=== PATIENT | female | born 1970 | race Caucasian/White ===

== ENCOUNTER 2016-11-21 05:30 | Day surgery (SDC) ==
[2016-11-21] MEDS ORDERED: NS 1,000 ML ONE (06:09)
[2016-11-21] MEDS ORDERED: MYLICON DROPS (DOSE) MISC ONE (06:40)
[2016-11-21] MEDS ORDERED: DIPRIVAN 1% ONE (07:25)
[2016-11-21 08:02] VITALS: BP 122/77
[2016-11-21] MEDS ORDERED: VERSED ONE (08:49)
--- NOTE | 2016-11-21 09:19 | OPERATIVE NOTE ---
PROCEDURE DATE: 11/21/2016 PROCEDURE: Esophagogastroduodenoscopy HISTORY AND REASON FOR PROCEDURE: This patient has a history of gastroesophageal reflux disease. She also has some postprandial abdominal pain. She has quite a large spleen and fatty liver. Dr. Deutsch is planning for a splenectomy. Therefore, he asked me to do an endoscopy prior to splenectomy. Medications were all given by Anesthesiologist. Patient was monitored before, during, and after the procedure by them and her condition remains stable. PHOTOS TAKEN: None. SPECIMENS: From the antrum, to rule out Helicobacter pylori infection. PROCEDURE: The patient was kept in the left lateral decubitus position. Bite block was applied. The Olympus video scope was introduced under direct vision in the throat and advanced to the esophagus. The esophagus was then insufflated. The mucosa in the upper esophagus and mid esophagus appeared normal. At the lower esophagus, there were some erosions present with some mild erythema suggestive of reflux esophagitis. The GE junction was normal. The scope was advanced without any difficulty in the stomach. There was some debris which was aspirated and removed. The scope was immediately taken down to the antrum. The antrum had multiple erosions present, some of them were quite deep but no ulcerations were present. Some enlarged folds were present in the prepyloric area. The pylorus admitted the scope without any difficulty. Duodenal bulb and second part of the duodenum appeared normal. The scope was withdrawn. The stomach was retroflexed. The angularis, left was lesser curvature, and greater curvature were all examined carefully. There were no lesions in those areas. The fundus appeared to be normal. There were 2 biopsies taken from the antrum to rule out Helicobacter pylori infection. Air was taken out from the patient's stomach and scope was removed from the patient. In particular, there was no evidence of any gastric or esophageal varices. RECOMMENDATIONS: Continue omeprazole. The patient is to see me in the office in 2 weeks time.
== END 2016-11-21 07:55 | disposition home or self-care (01) ==
LOC: ENDO 05:30
PROVIDERS: ATTEND Internal Medicine Gastroenterology
DX: K29.50 Unspecified chronic gastritis without bleeding (principal); K21.9 Gastro-esophageal reflux disease without esophagitis; I10 Essential (primary) hypertension; E66.9 Obesity, unspecified; E11.9 Type 2 diabetes mellitus without complications; M19.90 Unspecified osteoarthritis, unspecified site; M79.7 Fibromyalgia
CPT/HCPCS: 82948; 88305; 88312; J2250; J7030

== ENCOUNTER 2016-11-21 07:51 | Inpatient (IN) ==
--- NOTE | 2016-11-20 13:00 | Diag Imaging Result Document ---
PROCEDURE NAME: CHEST-2 VIEWS - 11/20/2016 TWO VIEWS OF THE CHEST: FINDINGS: There is no evidence of acute cardiac or pulmonary disease. There are no previous studies. IMPRESSION: No acute disease.
--- NOTE | 2016-11-20 14:12 | EKG Report ---
Test Performed on : 11/20/2016 11:22:52 AM Test Reason : PAT Blood Pressure : / mmHG Vent. Rate : 099 BPM Atrial Rate : 099 BPM P-R Int : 160 ms QRS Dur : 072 ms QT Int : 376 ms P-R-T Axes : 048 025 026 degrees QTc Int : 482 ms Normal sinus rhythm. Prolonged QT Abnormal ECG No previous ECGs available Confirmed by John Nuñez MD ([id number]) on 11/21/2016 8:56:19 PM
[2016-11-24 08:59] LABS: MANUAL DIFF NEEDED? NO
[2016-11-24 08:59] LABS: URINE MICRO REVIEW NEEDED? NO; URINE SOURCE CLEAN CATCH
[2016-11-24 09:15] LABS: BILIRUBIN URINE NEGATIVE (NEGATIVE); BLOOD URINE NEGATIVE (NEGATIVE); COLOR YELLOW; GLUCOSE URINE NEGATIVE (NEGATIVE); LEUKOCYTES URINE NEGATIVE (NEGATIVE); NITRITE URINE NEGATIVE (NEGATIVE); PROTEIN URINE NEGATIVE (NEGATIVE); SP GRAVITY URINE 1.017; TURBIDITY URINE CLEAR (CLEAR); UR EPITHELIAL CELLS <10 /HPF (<10); URINE BACTERIA NEGATIVE /HPF; URINE RBC <10 /HPF (<10); URINE WBC <10 /HPF (<10); UROBILINOGEN URINE NORMAL (NORMAL)
[2016-11-24 09:36] LABS: AGAP 12; ALBUMIN 3.8 g/dL (3.5-5.0); ALKALINE PHOSPHATASE 134 U/L (32-104); BUN 8 mg/dL (8-22); CALCIUM 9.1 mg/dL (8.8-10.2); CHLORIDE 94 mmol/L (98-107); COSMO 273; GOT 47 U/L (10-30); GPT 51 U/L (10-36); POTASSIUM 3.6 mmol/L (3.5-5.1); SODIUM 136 mmol/L (136-145); TCO2 30 mmol/L (25-35); TOTAL BILIRUBIN 0.44 mg/dL (0.20-1.00)
[2016-11-24 09:40] LABS: BASO% 0.8 % (0.0-0.8); EOS% 1.3 % (0.0-10.0); HEMATOCRIT 37.1 % (37.0-47.0); HEMOGLOBIN 12.2 g/dL (12.0-16.0); LYMPH# 4.64 X1000 (1.2-3.4); LYMPH% 60.2 % (20.5-51.1); MCH 27.8 PG (27-31); MCHC 32.9 g/dL (33-37); MCV 84.5 FL (81-99); MONO# 0.54 X1000 (0.11-0.59); NEUT% 30.7 % (42.2-75.2); PLT 230 X1000 (130-400); RBC 4.39 XMIL (4.2-5.4)
[2016-11-25] MEDS ORDERED: REGLAN ONE (06:15)
[2016-11-25] MEDS ORDERED: LR 1,000 ML ONE (06:15)
[2016-11-25] MEDS ORDERED: KEFZOL 1 GM/D5W 50 ML ONE (06:15)
[2016-11-25] MEDS ORDERED: PEPCID ONE (06:15)
[2016-11-25] MEDS ORDERED: ROBINUL ONE ×2 (06:36→11:40)
[2016-11-25] MEDS ORDERED: SODIUM CHLORIDE 0.9% 10 ML ONE ×2 (07:08→07:09)
[2016-11-25] MEDS ORDERED: MARCAINE 0.25% PF ONE ×2 (07:08)
[2016-11-25] MEDS ORDERED: EXPAREL 1.3% ONE (07:08)
[2016-11-25 07:42] LABS: URINE MICRO REVIEW NEEDED? NO; URINE SOURCE CATH
[2016-11-25 07:46] LABS: BILIRUBIN URINE NEGATIVE (NEGATIVE); BLOOD URINE NEGATIVE (NEGATIVE); COLOR YELLOW; GLUCOSE URINE NEGATIVE (NEGATIVE); LEUKOCYTES URINE NEGATIVE (NEGATIVE); NITRITE URINE NEGATIVE (NEGATIVE); PH URINE 7.5; PROTEIN URINE TRACE mg/dL (NEGATIVE); SP GRAVITY URINE 1.019; TURBIDITY URINE CLEAR (CLEAR); UROBILINOGEN URINE NORMAL (NORMAL)
[2016-11-25 07:48] LABS: UR EPITHELIAL CELLS <10 /HPF (<10); URINE BACTERIA NEGATIVE /HPF; URINE RBC <10 /HPF (<10); URINE WBC <10 /HPF (<10)
[2016-11-25] MEDS ORDERED: DILAUDID ONE ×3 (09:18→12:34)
[2016-11-25] MEDS: DEMEROL ONE ×5 (09:25→09:50)
[2016-11-25] MEDS ORDERED: D5 1/2 NS 1,000 ML ONE (09:55)
[2016-11-25] MEDS: DILAUDID ONE ×2 (10:05→10:20)
[2016-11-25] MEDS ORDERED: DILAUDID PCA VIAL ONE (10:17)
--- NOTE | 2016-11-25 11:09 | OPERATIVE NOTE ---
PROCEDURE DATE: 11/25/2016 PREOPERATIVE DIAGNOSIS: Splenomegaly with left upper quadrant pain. PROCEDURE: Open splenectomy. SURGEON: Arian Deutsch MD and Facundo Ohara MD DESCRIPTION OF PROCEDURE: The patient was brought to the operating room. After satisfactory induction of IV and endotracheal anesthesia, Barrett catheter and athrombic TEDs were placed. She was propped up on the left side. Her abdomen was broadly prepped and draped in the appropriate manner. A generous left subcostal incision was taken sharply down through skin and 3-4 inches of subcutaneous fat prior to reaching the fascia. The fascia was incised. The left rectus muscle was divided. The peritoneum was grasped and entered. The viscera were packed inferiorly. The liver was seen to be largely fatty replaced, but not cirrhotic. The spleen itself was quite large. Mobilization of the spleen was obtained with LigaSure instrument on the splenic attachments to the diaphragm and the colon. There was some bleeding in an upper branch of the splenic artery that was controlled by Yolanda clamps and suture ligation with 2-0 silk. The spleen was eventually delivered. The hilum was stapled with two TA 30 vascular faustino and spleen itself was removed. Several other small bleeding points were controlled by suture ligatures. The wound was irrigated. There appeared to be no further bleeding. A wedge of left lobe of the liver was taken for liver biopsy. This was controlled with electrocautery and Surgicel gauze sewed down with 0 Vicryl suture. Completion and after accounting for all laparotomy sponges, closure was initiated. The peritoneum was closed with a single running layer of #1 Vicryl. The fascia was closed with running #1 Maxon. Subcutaneous was closed with 3-0 Vicryl and the skin itself with stainless steel clips. Sterile dressing was applied. She was awakened in the operating room, transferred to recovery. Barrett catheter and athrombic TEDs were left in place. She may be monitored in ICU depending on her ventilator status.
[2016-11-25] MEDS ORDERED: DIPRIVAN 1% ONE (11:33)
[2016-11-25] MEDS ORDERED: FENTANYL ONE (11:33)
[2016-11-25] MEDS ORDERED: DECADRON ONE (11:40)
[2016-11-25] MEDS ORDERED: HESPAN 500 ML ONE (11:40)
[2016-11-25] MEDS ORDERED: OFIRMEV 1000 MG/ISOTONIC SOLN 100 ML ONE (11:40)
[2016-11-25] MEDS ORDERED: LR 2,000 ML ONE (11:40)
[2016-11-25] MEDS ORDERED: ZOFRAN ONE (11:40)
[2016-11-25] MEDS ORDERED: ZEMURON ONE (11:40)
[2016-11-25] MEDS ORDERED: NEOSTIGMINE ONE (11:40)
[2016-11-25] MEDS ORDERED: QUELICIN (DOSE) ONE (11:40)
[2016-11-25] MEDS ORDERED: XYLOCAINE-MPF 2% ONE (11:40)
[2016-11-25] MEDS ORDERED: PHENERGAN IV PRN (13:36)
[2016-11-25] MEDS ORDERED: SODIUM CHLORIDE 0.9% INJ PRN (13:36)
[2016-11-25] MEDS ORDERED: BENADRYL IV PRN (13:36)
[2016-11-25] MEDS ORDERED: ZOFRAN IV PRN (13:36)
[2016-11-25] MEDS ORDERED: NARCAN IV PRN (13:36)
[2016-11-25] MEDS ORDERED: DILAUDID PCA VIAL IV PRN (13:36)
[2016-11-25] MEDS ORDERED: PNEUMOVAX 23 IM ONE (13:45)
[2016-11-25] MEDS ORDERED: PATIENT'S OWN MED PO PRN (14:04)
[2016-11-25 15:16] LABS: HEMATOCRIT 28.2 % (37.0-47.0); HEMOGLOBIN 9.1 g/dL (12.0-16.0)
[2016-11-25] MEDS: KEFZOL 1 GM/D5W 50 ML IV SCH ×2 (15:23→21:33)
[2016-11-25] MEDS: D5 1/2 NS 1,000 ML IV SCH ×2 (15:24→21:34)
[2016-11-25] MEDS: LR 1,000 ML IV SCH (15:25)
[2016-11-25] MEDS ORDERED: VERSED ONE (15:52)
[2016-11-25] MEDS: TYLENOL PM PO SCH (21:33)
[2016-11-25] MEDS: PERIDEX MT SCH (21:33)
[2016-11-26] MEDS: KEFZOL 1 GM/D5W 50 ML IV SCH ×2 (01:35→06:50)
[2016-11-26] MEDS: D5 1/2 NS 1,000 ML IV SCH ×4 (01:36→19:06)
[2016-11-26 05:41] LABS: BASO% 0.1 % (0.0-0.8); EOS# 0.01 X1000 (0.0-0.7); EOS% 0.1 % (0.0-10.0); HEMATOCRIT 26.4 % (37.0-47.0); HEMOGLOBIN 8.2 g/dL (12.0-16.0); IMM GRAN# 0.03 X1000 (0.0-0.04); IMM GRAN% 0.2 % (0.0-0.5); LYMPH# 4.29 X1000 (1.2-3.4); LYMPH% 30.9 % (20.5-51.1); MANUAL DIFF NEEDED? NO; MCH 27.3 PG (27-31); MCHC 31.1 g/dL (33-37); MONO# 1.78 X1000 (0.11-0.59); MONO% 12.8 % (1.7-9.3); MPV 9.7 FL (7.4-10.4); NEUT% 55.9 % (42.2-75.2); PLT 233 X1000 (130-400)
[2016-11-26 06:57] LABS: CHLORIDE 101 mmol/L (98-107); POTASSIUM 3.8 mmol/L (3.5-5.1); SODIUM 139 mmol/L (136-145)
[2016-11-26 06:58] LABS: AGAP 8; BUN 5 mg/dL (8-22); CALCIUM 7.3 mg/dL (8.8-10.2); COSMO 278; TCO2 30 mmol/L (25-35)
--- NOTE | 2016-11-26 07:57 | Diag Imaging Result Document ---
PROCEDURE NAME: CHEST-PORTABLE - 11/26/2016 AP PORTABLE CHEST, 11/26/2016 AT 0500 HOURS: FINDINGS: There is atelectasis over the right middle lobe which was not present on 11/20/2016. The inspiration is suboptimal. IMPRESSION: Marked right middle lobe atelectasis.
[2016-11-26] MEDS: HYZAAR 50/12.5 MG PO SCH (08:13)
[2016-11-26] MEDS ORDERED: CYMBALTA PO SCH (09:00)
[2016-11-26] MEDS ORDERED: HESPAN 500 ML IV SCH (09:00)
[2016-11-26] MEDS: PATIENT'S OWN MED PO SCH (09:23)
[2016-11-26] MEDS: GLUCOPHAGE PO SCH (09:23)
[2016-11-26] MEDS: PERIDEX MT SCH ×2 (09:24→21:59)
[2016-11-26] MEDS: PRILOSEC PO SCH (09:25)
[2016-11-26] MEDS: BUSPAR PO SCH (09:26)
[2016-11-26] MEDS: ALLEGRA-D 12 HOUR PO SCH (09:26)
[2016-11-26] MEDS: LR 1,000 ML IV SCH (14:32)
[2016-11-26] MEDS ORDERED: OFIRMEV 1000 MG/ISOTONIC SOLN 100 ML IV SCH (18:00)
[2016-11-26] MEDS: OFIRMEV 1000 MG/ISOTONIC SOLN 100 ML IV PRN (18:02)
[2016-11-26] MEDS: TYLENOL PM PO SCH (21:59)
[2016-11-27] MEDS: D5 1/2 NS 1,000 ML IV SCH (04:46)
[2016-11-27] MEDS: OFIRMEV 1000 MG/ISOTONIC SOLN 100 ML IV PRN ×2 (04:49→18:47)
[2016-11-27 07:00] LABS: BASO% 0.2 % (0.0-0.8); EOS# 0.04 X1000 (0.0-0.7); EOS% 0.2 % (0.0-10.0); HEMATOCRIT 26.4 % (37.0-47.0); HEMOGLOBIN 8.1 g/dL (12.0-16.0); IMM GRAN# 0.05 X1000 (0.0-0.04); IMM GRAN% 0.3 % (0.0-0.5); LYMPH# 4.41 X1000 (1.2-3.4); LYMPH% 27.4 % (20.5-51.1); MANUAL DIFF NEEDED? YES; MCH 27.3 PG (27-31); MCHC 30.7 g/dL (33-37); MCV 88.9 FL (81-99); MONO# 2.08 X1000 (0.11-0.59); MONO% 12.9 % (1.7-9.3); MPV 10.8 FL (7.4-10.4); PLT 315 X1000 (130-400); RBC 2.97 XMIL (4.2-5.4)
[2016-11-27 07:13] LABS: AGAP 10; BUN 4 mg/dL (8-22); CALCIUM 7.2 mg/dL (8.8-10.2); CHLORIDE 97 mmol/L (98-107); COSMO 269; POTASSIUM 3.3 mmol/L (3.5-5.1); SODIUM 134 mmol/L (136-145); TCO2 27 mmol/L (25-35)
[2016-11-27 07:33] LABS: LYMPHS 24 % (21-51); MONO 2 % (1-9)
[2016-11-27] MEDS: KEFZOL 1 GM/D5W 50 ML IV SCH ×2 (09:03→16:46)
[2016-11-27] MEDS: PATIENT'S OWN MED PO SCH (09:04)
[2016-11-27] MEDS: GLUCOPHAGE PO SCH (09:05)
[2016-11-27] MEDS: HYZAAR 50/12.5 MG PO SCH (09:05)
[2016-11-27] MEDS: PRILOSEC PO SCH (09:06)
[2016-11-27] MEDS: ALLEGRA-D 12 HOUR PO SCH (09:06)
[2016-11-27] MEDS: PERIDEX MT SCH ×2 (09:06→21:33)
[2016-11-27] MEDS: BUSPAR PO SCH (09:07)
[2016-11-27] MEDS: ASPIRIN PO SCH (09:07)
[2016-11-27] MEDS: CYMBALTA PO SCH (09:07)
--- NOTE | 2016-11-27 09:41 | Diag Imaging Result Document ---
PROCEDURE NAME: CHEST-2 VIEWS - 11/27/2016 TWO VIEWS OF THE CHEST: FINDINGS: There is some improvement in the right middle lobe atelectasis seen on 11/26/2016. Otherwise there has been no significant change. IMPRESSION: Improved atelectasis.
[2016-11-27] MEDS: D5 1/2 NS + KCL 20 MEQ 1,000 ML IV SCH (10:17)
[2016-11-27] MEDS: ZOFRAN IV PRN (15:13)
[2016-11-27] MEDS: LR 1,000 ML IV SCH (15:17)
[2016-11-27] MEDS ORDERED: PHENERGAN IV PRN (15:56)
[2016-11-27] MEDS: TYLENOL PM PO SCH (21:33)
[2016-11-28] MEDS: KEFZOL 1 GM/D5W 50 ML IV SCH (00:10)
[2016-11-28] MEDS: NORCO-10 PO PRN ×4 (05:39→20:21)
[2016-11-28 05:42] LABS: MANUAL DIFF NEEDED? NO
[2016-11-28 05:58] LABS: BASO% 0.2 % (0.0-0.8); EOS# 0.13 X1000 (0.0-0.7); EOS% 1.2 % (0.0-10.0); HEMOGLOBIN 8.3 g/dL (12.0-16.0); IMM GRAN# 0.03 X1000 (0.0-0.04); IMM GRAN% 0.3 % (0.0-0.5); LYMPH# 2.72 X1000 (1.2-3.4); LYMPH% 24.4 % (20.5-51.1); MCH 27.2 PG (27-31); MCHC 30.7 g/dL (33-37); MCV 88.5 FL (81-99); MONO% 9.9 % (1.7-9.3); MPV 10.6 FL (7.4-10.4); PLT 377 X1000 (130-400); RBC 3.05 XMIL (4.2-5.4)
[2016-11-28 06:07] LABS: AGAP 6; BUN 4 mg/dL (8-22); CALCIUM 7.5 mg/dL (8.8-10.2); CHLORIDE 100 mmol/L (98-107); COSMO 273; POTASSIUM 3.5 mmol/L (3.5-5.1); SODIUM 137 mmol/L (136-145); TCO2 31 mmol/L (25-35)
[2016-11-28] MEDS: CYMBALTA PO SCH (08:01)
[2016-11-28] MEDS: GLUCOPHAGE PO SCH (08:02)
[2016-11-28] MEDS: ASPIRIN PO SCH (08:02)
[2016-11-28] MEDS: ALLEGRA-D 12 HOUR PO SCH (08:02)
[2016-11-28] MEDS: PRILOSEC PO SCH (08:02)
[2016-11-28] MEDS: BUSPAR PO SCH (08:03)
[2016-11-28] MEDS: HYZAAR 50/12.5 MG PO SCH (08:03)
[2016-11-28] MEDS: PERIDEX MT SCH ×2 (08:04→20:22)
[2016-11-28] MEDS: ZOFRAN IV PRN ×2 (08:13→18:11)
[2016-11-28] MEDS: D5 1/2 NS + KCL 20 MEQ 1,000 ML IV SCH (08:52)
[2016-11-28] MEDS: PATIENT'S OWN MED PO SCH (13:34)
[2016-11-28] MEDS: LR 1,000 ML IV SCH (14:48)
[2016-11-28] MEDS: TYLENOL PM PO SCH (21:17)
[2016-11-29] MEDS: NORCO-10 PO PRN ×3 (01:28→10:59)
[2016-11-29] MEDS: ZOFRAN IV PRN (07:37)
[2016-11-29] MEDS: PERIDEX MT SCH (07:37)
[2016-11-29] MEDS: HYZAAR 50/12.5 MG PO SCH (07:38)
[2016-11-29] MEDS: BUSPAR PO SCH (07:38)
[2016-11-29] MEDS: PRILOSEC PO SCH (07:38)
[2016-11-29] MEDS: ALLEGRA-D 12 HOUR PO SCH (07:39)
[2016-11-29] MEDS: CYMBALTA PO SCH (07:39)
[2016-11-29] MEDS: ASPIRIN PO SCH (07:39)
[2016-11-29 08:18] VITALS: BP 104/60
--- NOTE | 2016-12-09 12:35 | DISCHARGE SUMMARY ---
ADMISSION DATE: 11/25/2016 DISCHARGE DATE: 11/29/2016 DISCHARGE: Fatty infiltration of the liver with cirrhosis and splenomegaly. PROCEDURE PERFORMED: Open splenectomy. HISTORY AND HOSPITAL COURSE: The patient is a 46-year-old, white female with morbid obesity referred for evaluation of enlarging spleen with significant pain in the left upper quadrant. Recent CT's over a 3 month period have revealed a 3 cm increase in the size of the spleen. The previous week Dr. Slater had performed an EGD that revealed no evidence of esophageal varices or portal hypertension. CT scan revealed the portal vein to be patent with antegrade flow into the liver, but her spleen was significantly enlarged. Platelet count was satisfactory. There was no history of arthritic changes. No history of ITP or TTP, so she underwent an outpatient mechanical bowel prep and the morning of surgery she underwent a left subcostal incision with open splenectomy. Lowest recorded hematocrit postoperatively was 26. No blood transfusions were required. She did improve. Ileus resolved and her hematocrit began to rebuild. It was 27 at the time of discharge. The wound appeared to heal nicely. She was allowed home on 11/29 on [place], Zofran, multivitamins, Colace and daily aspirin. Her platelet count was up into the 400,000 range at the time of discharge. Half of her clips have been removed. She will be seen in the office in 1 week's time. Pneumovax vaccination was given.
== END 2016-11-29 11:05 | disposition home or self-care (01) | DRG 800 ==
LOC: SURHOLD 11-25 02:03 → 4N 11-25 13:01 → DIRADM 11-26 14:21 → 4N 11-26 14:27
PROVIDERS: ADMIT Surgery; ATTEND Surgery
PROC: 07TP0ZZ Resection of Spleen, Open Approach (ICD-10-PCS; principal; 2016-11-25 06:50)
PROC: 0FB20ZX Excision of Left Lobe Liver, Open Approach, Diagnostic (ICD-10-PCS; 2016-11-25 06:50)
DX: R16.1 Splenomegaly, not elsewhere classified (principal); K56.7 Ileus, unspecified; Z68.42 Body mass index [BMI] 45.0-49.9, adult; K74.69 Other cirrhosis of liver; E66.01 Morbid (severe) obesity due to excess calories; I10 Essential (primary) hypertension; I34.1 Nonrheumatic mitral (valve) prolapse; E11.9 Type 2 diabetes mellitus without complications; K21.9 Gastro-esophageal reflux disease without esophagitis; M19.90 Unspecified osteoarthritis, unspecified site; F17.210 Nicotine dependence, cigarettes, uncomplicated; Z23 Encounter for immunization; Z79.899 Other long term (current) drug therapy; Z79.84 Long term (current) use of oral hypoglycemic drugs; Z83.3 Family history of diabetes mellitus; Z82.3 Family history of stroke; Z82.49 Family history of ischemic heart disease and other diseases of the circulatory system
CPT/HCPCS: 71010; 71020; 80048; 80053; 81001; 82948; 85014; 85018; 85025; 86850; 86900; 86901; 86920; 88305; 88307; 88313; 90732; 93005; 93010; 94761; 94799; C9290; J0131; J0330; J0690; J1100; J1170; J2175; J2250; J2405; J2550; J3010; J3480; J7120; 97530-GP; J2710; S0020